=== PATIENT | female | born 1980 | race Caucasian/White ===

== ENCOUNTER 2018-07-26 11:59 | Outpatient (REF) | payer MEDICAID, SELFPAY ==
[2018-07-26 18:48] LABS: Anion Gap 13.7 mmol/L (3-11); BUN 14 mg/dL (7-18); CO2 25.3 mmol/L (21.0-32.0); Calcium 9.5 mg/dL (8.5-10.1); Chloride 113 mmol/L (98-107); Glucose 79 mg/dL (70-100); Potassium 5.4 mmol/L (3.5-5.1); Sodium 152 mmol/L (136-145); TSH (W/Ref FT4) 1.69 uIU/mL (0.358-3.74)
== END 2018-07-26 12:19 ==
LOC: NCHCN 11:59
PROVIDERS: PCP Nurse Practitioner Family; Visit Provider Nurse Practitioner Family
DX: E03.9 Hypothyroidism, unspecified (principal)
CPT/HCPCS: 80048; 84443

== ENCOUNTER 2018-08-11 11:36 | Outpatient (CLI) | payer MEDICAID, SELFPAY ==
[2018-08-12 10:06] LABS: BUN 14 mg/dL (7-18); CREATININE 0.71 mg/dL (0.55-1.02); Calcium 9.2 mg/dL (8.5-10.1); Chloride 100 mmol/L (98-107); Glucose 82 mg/dL (70-100); Potassium 5.2 mmol/L (3.5-5.1); Sodium 136 mmol/L (136-145)
[2018-08-12 10:07] LABS: Anion Gap 9.6 mmol/L (3-11); CO2 26.4 mmol/L (21.0-32.0)
== END 2018-08-11 11:56 ==
PROVIDERS: PCP Nurse Practitioner Family; Visit Provider Nurse Practitioner Family
DX: R63.5 Abnormal weight gain (principal); L81.9 Disorder of pigmentation, unspecified
CPT/HCPCS: 80048

== ENCOUNTER 2018-11-08 00:59 | Outpatient (CLI) | payer MEDICAID, SELFPAY ==
--- NOTE | 2018-11-08 10:55 | NS.NUTBLAN_ITS ---
DESCRIPTION/ASSESSMENT: Jadyn Law presents with her and child for nutrition consult with recent weight gain of 70 pounds over the past year since stopping . BMI 34 Jadyn has been tracking her calories in [employer] and sends in her food journal prior to the appointment. Her food input reveals she is eating 1000- 1200 calories per day and averages 25-34 grams protein daily. Jadyn has been gaining about a pound a week. Since seeing her PCP she has cut back on her food intake, choices and portions. She is drinking 5 cups water daily. States she has adequate resources for purchasing food for her family and appreciates [facility]. Jadyn and her walk 1/2 hour a couple of times a week. On further inspection of her food choices, she admits that she is not thorough in her documentation of her food, i.e. no recorded milk with cereal; sugar in coffee. INTERVENTION: Discussed general balanced food plan; caloric density of foods; accurate portions. Discussed plate method. Reviewed sources of protein and the caloric density of processed and fast food choices. Discussed physical activity with possibility of increasing frequency of days for walking. PLAN: Jadyn will increase vegetables to at least 1 cup lunch and supper with snacks between; increase her portions and variety of protein foods measure her food once for check on accuracy of information in [employer] add 10-2 servings of fruit daily for snack and sweet walk 2 more days a week than currently We will follow up by telephone in a week. Jadyn is engaged in the conversation and motivated to make changes.
== END 2018-11-08 01:19 ==
PROVIDERS: PCP Nurse Practitioner Family; Visit Provider Dietitian, Registered
DX: R63.5 Abnormal weight gain (principal); Z71.3 Dietary counseling and surveillance
CPT/HCPCS: 97802

== ENCOUNTER 2019-08-08 09:49 | Outpatient (REF) | payer MEDICAID, SELFPAY ==
[2019-08-08 16:24] LABS: TSH (W/Ref FT4) 1.84 uIU/mL (0.36-3.74)
== END 2019-08-08 10:09 ==
LOC: NCHCN 09:49
PROVIDERS: PCP Nurse Practitioner Family; Visit Provider Nurse Practitioner Family
DX: E03.9 Hypothyroidism, unspecified (principal)
CPT/HCPCS: 84443

== ENCOUNTER 2019-10-06 00:58 | Outpatient (CLI) | payer MEDICAID, SELFPAY ==
--- NOTE | 2019-10-06 07:30 | DI.US_ITS ---
EXAM: US OB 1ST TRIMESTER CLINICAL HISTORY: late entry to care, Z34.81, SUPERVISION . COMPARISON: US OB ASSESSMENT - WEIGHT/BRENDON from 12/24/2015 TECHNIQUE: Transabdominal first trimester obstetrical ultrasound performed. FINDINGS: There is a single living intrauterine gestation. Estimated sonographic age is 15 weeks 2 days. EDC is 03/27/2020 heart rate is 160 beats per minute. movement was noted during the examinat ion. Amniotic fluid is within normal limits. Both ovaries are visualized and are grossly unremarkab le. IMPRESSION: Single live intrauterine gestation as above. DATA REPOSITORY:
== END 2019-10-06 01:18 ==
PROVIDERS: PCP Nurse Practitioner Family; Visit Provider Obstetrics & Gynecology Gynecology
DX: Z34.82 Encounter for supervision of other normal pregnancy, second trimester (principal); Z3A.15 15 weeks gestation of pregnancy
CPT/HCPCS: 76801

== ENCOUNTER 2019-10-06 10:54 | Outpatient (REF) | payer MEDICAID, SELFPAY ==
--- NOTE | 2019-10-06 10:10 | PAPFT_PTH ---
PATIENT: Jadyn Law LOC: [facility] U#:[id number] AGE/SX: 38/F ROOM: RE10/06/[address]: Radha Montaño : 1980 BED: DIS: 10/06/2019 SPEC #: [id number] RECD: 10/06/19 12:57 STATUS: JULIANN REQ #: [id number] KERON: 10/06/19 10:[address]: Radha Montaño DEPT: [facility] Cytology RECD BY: Alesha Teixeira ENTERED: 10/06/19 12:58 SP TYPE: PAPFT OTHR DR: Sneha Wood Tissues: 1 - CX/ENDOCX FOR PAP SMEARS Procedures: PAP THIN PREP/UVM Screening HPV DNA PROBE Comments: [id number]
[2019-10-06 12:34] LABS: *AMPHETAMINES SCREEN URINE Negative (Negative); *BARBITURATES SCREEN URINE Negative (Negative); *BENZODIAZEPINES SCREEN URINE Negative (Negative); Cannabinoids THC Negative (Negative); Cocaine Screen,Urine Negative (Negative); METHADONE URINE SCREEN Negative (Negative); OPIATES URINE SCREEN Negative (Negative)
[2019-10-06 12:36] LABS: Tricyclic Antidepressants Negative (Negative)
[2019-10-07 14:39] LABS: Chlamydia Result Negative (Negative); GC Result Negative (Negative)
[2019-10-11 16:35] LABS: Buprenorphine Negative; Norbuprenorphine Negative
--- NOTE | 2019-10-18 15:06 | W.DIABETESNO ---
Date of service: 10/18/19 Time of Service: 15:06 Diabetes Note NOTE: Received referral for nutrition consult for gestational diabetes for pt. She is 38 years old and has hx of gestational dm with previous child that required metformin and NPH insulin. Current meds include vitamin and levothyrioxin. 5'3 202 lbs, BMI 35. She reports fasting sugars ranging from 83-97 mg/dl, 1 hour pp levels ranging from 79-161 mg/dl. Readings > 130 mg/dl occurred after eating pizza and pasta meals. We discussed importance of following strict blood sugar control with focus on complex carbs, lean protein and non starchy vegetables. Marsha is knowledgeable about nutrition and motivated to maintain good nutrition during this . I provided education on glycemic index and ways to fill up without high intakes of calories/carbohydrates that can drive up her blood sugars. Follow visit scheduled for next [facility] appt on 11/03/19. Time Spent in Nutritional Counseling and Treatment: 15 min spent talking on phone
--- NOTE | 2019-11-01 09:20 | W.DIABETESNO ---
Date of service: 11/01/19 Time of Service: 09:20 Diabetes Note NOTE: Spoke with Jadyn after she sent me her food record and blood sugar log. Jadyn is 18 weeks with GDM. Previous took metformin and NPH insulin. In last 7 days, has had fasting readings 78-97 mg/dl, post pranial readings ranging from 135-151 mg/dl. Food record indicates overall well balanced meals, however does have simple carbs about once daily. Reviewed high carb food items to avoid such as ramen noodles, rice. Encouraged increase in non starchy vegetables and lean protein. Will meet in person at next fu appt. scheduled for 11/03/19 at 11 am. Per morning meeting, most likely will need to add insulin for optimal blood sugar control. Time Spent in Nutritional Counseling and Treatment: 10 min
== END 2019-10-06 11:14 ==
LOC: LBN 10:54
PROVIDERS: PCP Nurse Practitioner Family; Visit Provider Advanced Practice Midwife
DX: Z34.91 Encounter for supervision of normal pregnancy, unspecified, first trimester (principal); Z11.3 Encounter for screening for infections with a predominantly sexual mode of transmission; Z12.4 Encounter for screening for malignant neoplasm of cervix; N89.8 Other specified noninflammatory disorders of vagina
CPT/HCPCS: 80307; 87491; 87591; 88142; 87086; 87480; 87510; 87624; 87660

== ENCOUNTER 2019-11-03 13:46 | Outpatient (CLI) | payer MEDICAID, SELFPAY ==
--- NOTE | 2019-11-03 13:00 | NS.NUTBLAN_ITS ---
Jadyn is dx with GDM, 18 weeks gestation. Previous with insulin dept GDM, with DVT, PE. Meds include levothyroxin, vitamins. BMI > 35 at with failed GTT. This is second nutritional counseling session for Jadyn, previously counseled over phone, today in person in [facility]. Food record log indicates well balanced, home cooked meals with fasting sugars and pp sugars wnl. Strong family history of diabetes, Jadyn is very knowledgeable about diabetic exchanges and affects of foods on blood sugars. Jadyn also walks 1 hour daily after dinner. She has noted that when she misses her walk, her fasting sugars become more elevated. Overall, Berta's GDM is diet and exercise controlled. Encouraged her to continue checking her BS and email me her blood sugar log weekly. Will continue to follow.
--- NOTE | 2019-11-14 12:41 | W.DIABETESNO ---
Date of service: 11/14/19 Time of Service: 12:42 Diabetes Note NOTE: Jadyn emailed specifications writer her blood sugar logs for previous week. Jadyn is 20 weeks and dx with GDM. In last 7 days all fasting sugars indicated to be <95 mg/dl, post prandials <135 mg/dl, one elevated post prandial of 164 mg/dl after dinner with noodles/potatoes. Jadyn continues to walk upto 1 mile most days. At this time, GDM controlled with lifestyle changes. Will continue to follow and support. Time Spent in Nutritional Counseling and Treatment: 10 min spent
== END 2019-11-03 14:06 ==
PROVIDERS: PCP Nurse Practitioner Family; Visit Provider Dietitian, Registered
DX: O24.410 Gestational diabetes mellitus in pregnancy, diet controlled (principal); Z71.3 Dietary counseling and surveillance
CPT/HCPCS: 97803

== ENCOUNTER 2019-11-18 12:30 | Outpatient (REF) | payer MEDICAID, SELFPAY ==
[2019-11-18 12:55] LABS: Abs Immature Grans 0.03 10^3/uL (0.0-0.06); Absolute Basophil Count 0.02 10^3/uL (0.0-0.2); Absolute Eosinophil Count 0.07 10^3/uL (0.0-0.7); Absolute Lymphocyte Count 1.56 10^3/uL (1.2-3.4); Absolute Monocyte Count 0.45 10^3/uL (0.1-0.8); Absolute Neutrophil Count 5.91 10^3/uL (1.2-6.7); Basophils % 0.2; Eosinophils % 0.9; HCT 33.6 % (36.0-46.0); HGB 11.1 g/dL (11.2-15.7); Immature Grans % 0.4; Lymphocytes % 19.4; MCH 30.5 pg (27.0-33.0); MCV 92.3 fL (80-95); MPV 12.8 fL (8.0-11.0); Monocytes % 5.6; Neutrophils % 73.5; Nucleated RBC 0 %; Platelet Count 238 10^3/uL (130-400); RBC 3.64 10^6/uL (3.93-5.22); RDW 13.7 % (11.7-14.6); RDW-SD 46.3 fL; WBC 8.04 10^3/uL (4.4-10.8)
[2019-11-18 13:10] LABS: FREE T4 1.04 ng/dL (0.76-1.46); TSH 2.88 uIU/mL (0.36-3.74)
[2019-11-19 10:19] LABS: HIV-1/2 Ag & Ab Screen Negative (Negative)
[2019-11-21 09:28] LABS: Hepatitis B Surface Ag Negative (Negative)
[2019-11-21 10:05] LABS: Hepatitis C Ab w Rflx HCV PCR Negative (Negative)
[2019-11-21 10:41] LABS: Syphilis Total Ab w/Reflex Nonreactive (Nonreactive)
[2019-11-21 11:11] LABS: Varicella IgG Antibody Positive (See Note)
[2019-11-21 11:14] LABS: Rubella IgG Ab (UVM) Positive (See Note)
--- NOTE | 2019-11-21 15:07 | W.DIABETESNO ---
Date of service: 11/21/19 Time of Service: 15:07 Diabetes Note NOTE: Jadyn is 21 weeks gestation. Food record and glucose log provided by Jadyn, fasting sugars range from 86-94 mg/dl. Post prandials typically under 140 mg/dl. Had 2 high PP readings this week after high carbohydrate meals such as pizza, hot dogs with potato salad. Overall, BS controlled well with diet and exercise. Continues to walk most days 1- 2miles. Will continue to encourage healthy life style to manage GDM. Time Spent in Nutritional Counseling and Treatment: 10 minutes on phone
== END 2019-11-18 12:50 ==
LOC: LBN 12:30
PROVIDERS: PCP Nurse Practitioner Family; Visit Provider Advanced Practice Midwife
DX: Z34.91 Encounter for supervision of normal pregnancy, unspecified, first trimester (principal); R82.90 Unspecified abnormal findings in urine; Z34.90 Encounter for supervision of normal pregnancy, unspecified, unspecified trimester
CPT/HCPCS: 86787; 86803; 86850; 86900; 86901; 87340; 87389; 84439; 84443; 85025; 86762; 86780; 87086

== ENCOUNTER 2020-01-06 02:24 | Outpatient (CLI) | payer MEDICAID, SELFPAY ==
[2020-01-06 14:38] LABS: Glucose,1 Hr (Glucola) 135 mg/dL (80-140)
== END 2020-01-06 02:44 ==
PROVIDERS: PCP Nurse Practitioner Family; Visit Provider Obstetrics & Gynecology
DX: O09.292 Supervision of pregnancy with other poor reproductive or obstetric history, second trimester (principal); Z86.32 Personal history of gestational diabetes
CPT/HCPCS: 36415; 82950

== ENCOUNTER 2020-01-11 01:09 | Outpatient (CLI) | payer MEDICAID, SELFPAY ==
[2020-01-11 10:44] LABS: Glucose 1 Hour 189 mg/dL
[2020-01-11 12:24] LABS: Glucose 3 Hour 78 mg/dL
== END 2020-01-11 01:29 ==
PROVIDERS: PCP Nurse Practitioner Family; Visit Provider Obstetrics & Gynecology
DX: O24.410 Gestational diabetes mellitus in pregnancy, diet controlled (principal)
CPT/HCPCS: 36410; 82951

== ENCOUNTER 2020-02-03 03:23 | Outpatient (CLI) | payer MEDICAID, SELFPAY ==
--- NOTE | 2020-02-03 07:30 | DI.US_ITS ---
EXAM: US OB BRENDON WEIGHT CLINICAL HISTORY: growth,Z34.93,o24.419,GEST DIABETES TECHNIQUE: Ultrasound performed using standard protocol. COMPARISON: US US OB 1ST TRIMESTER from 10/06/2019 FINDINGS: Ob ultrasound was performed utilizing 3rd trimester protocol. biometry is consistent with gestational age of 33 weeks 6 days and an EDC of March 17. The estimated weight is 2269 grams which is at the 84th percentile for predicted gestational ag e. Placenta is anterior with no placenta previa. There is visually a normal quantity of amniotic fluid and the BRENDON is 21. Fetus is in cephalic presentation. heart rate is 149 BPM. IMPRESSION: DATA REPOSITORY:
== END 2020-02-03 03:43 ==
PROVIDERS: PCP Nurse Practitioner Family; Visit Provider Obstetrics & Gynecology Gynecology
DX: O24.410 Gestational diabetes mellitus in pregnancy, diet controlled (principal); R82.90 Unspecified abnormal findings in urine; Z3A.33 33 weeks gestation of pregnancy
CPT/HCPCS: 76816; 87086

== ENCOUNTER 2020-02-24 04:05 | Outpatient (CLI) | payer MEDICAID, SELFPAY ==
--- NOTE | 2020-02-24 07:00 | DI.US_ITS ---
EXAM: US OB BRENDON WEIGHT CLINICAL HISTORY: GESTATIONAL DIABETES,O24.419 IN . TECHNIQUE: Transabdominal obstetrical ultrasound performed. COMPARISON: US US OB BRENDON WEIGHT from 02/03/2020 FINDINGS: Transabdominal obstetrical ultrasound performed. FINDINGS: Number of fetuses: One. position: Cephalic. Placental location: Anterior. No evidence of previa. BIOMETRIC DATA: EFW: 3250 grms 96% Composite Age: 37 weeks 4 days EDC: 03/12/2020 Heart Rate: 153BPM Amniotic fluid index: 36.8 cm. This is suggestive of polyhydramnios. IMPRESSION: 1. Single live intrauterine gestation as above. 2. Estimated weight is 3250gms. 3. Amniotic fluid index is 36.8 cm. DATA REPOSITORY:
== END 2020-02-24 04:25 ==
PROVIDERS: PCP Nurse Practitioner Family; Visit Provider Obstetrics & Gynecology
DX: O24.410 Gestational diabetes mellitus in pregnancy, diet controlled (principal)
CPT/HCPCS: 76816

== ENCOUNTER 2020-03-05 00:42 | Outpatient (CLI) | payer MEDICAID, SELFPAY ==
--- NOTE | 2020-03-05 07:00 | DI.US_ITS ---
EXAM: US OB BIOPHYSICAL PROFILE INDICATION: Polyhydramnios,GESTATIONAL DIABETES,O24.419. COMPARISON: No exams were available for comparison TECHNIQUE: FINDINGS: Biophysical profile is 8/8, with no points detected. However, the BRENDON is 26.1 centimetres consistent with polyhydramnios Placenta is anterior grade 2-3. No evidence of placenta previa. Fetus is present in cephalic positi on. Incidentally noted on today's study was a prominent right atrium with diameter 1.9 centimetres. Outflow tracts appear unremarkable. IMPRESSION: Biophysical profile is 8/8, with no points adducted. Polyhydramnios; BRENDON equals 26 centimeter Prominent right atrium. Findings discussed by phone with Dr. Summers
== END 2020-03-05 01:02 ==
PROVIDERS: PCP Nurse Practitioner Family; Visit Provider Obstetrics & Gynecology
DX: O24.414 Gestational diabetes mellitus in pregnancy, insulin controlled (principal); Z3A.36 36 weeks gestation of pregnancy
CPT/HCPCS: 76815; 76819

== ENCOUNTER 2020-03-05 10:06 | Outpatient (CLI) | payer MEDICAID, SELFPAY ==
[2020-03-05 10:12] VITALS: BP 138/77; PULSE 81; TEMP 37.1
[2020-03-05 10:29] VITALS: BP 138/77; PULSE 81
[2020-03-05 16:37] VITALS: BP 138/77; PULSE 81; TEMP 37.1
--- NOTE | 2020-03-05 16:37 | W.OBNST ---
Date of service: 03/05/20 Time of Service: 16:37 NST Evaluation Reason for NST Reasons for Nonstress Test: OLIGOHYDRAMNIOS Gestational Age Gestational Age in Weeks and Days: 36 Weeks and 5Days Test and Monitor Explained Test/Monitor Explained: Test Explained, Monitor Explained and Patient Verbalized Understanding Vital Signs Blood Pressure: 138/77 Pulse: 81 Temperature: 98.8 F NST Information Date on Monitor: 03/05/20 Time on Monitor: 10:10 Date off Monitor: 03/05/20 Time off Monitor: 10:44 Total Time on Monitor: 34 NST Interventions: PO Hydration and Reposition Patient NST Evaluation Patient States Movement: Present FHR Baseline: 140 Variability: Moderate 6-25 bpm Accelerations: 15x15 Decelerations: None NST Results: Reactive Note NST Note NST Reviewed and Verified by: Ricardo Summers
== END 2020-03-05 10:45 ==
LOC: BCD 10:06 → OBS 10:10
PROVIDERS: PCP Nurse Practitioner Family; Visit Provider Obstetrics & Gynecology
DX: O41.03X0 Oligohydramnios, third trimester, not applicable or unspecified (principal); Z3A.36 36 weeks gestation of pregnancy
CPT/HCPCS: 59025

== ENCOUNTER 2020-03-08 12:24 | Outpatient (CLI) | payer MEDICAID, SELFPAY ==
[2020-03-08 12:59] VITALS: BP 150/79; PULSE 87
[2020-03-08 13:03] VITALS: BP 116/70; PULSE 87; TEMP 36.7
[2020-03-08 13:36] VITALS: BP 140/78; PULSE 88
--- NOTE | 2020-03-08 14:20 | W.OBNST ---
Date of service: 03/08/20 Time of Service: 14:21 NST Evaluation Reason for NST Reasons for Nonstress Test: GDM-DIET CONTROLLED Gestational Age Gestational Age in Weeks and Days: 37 Weeks and 1Days Test and Monitor Explained Test/Monitor Explained: Patient Verbalized Understanding Vital Signs Blood Pressure: 116/70 Pulse: 87 Temperature: 98.1 F NST Information Date on Monitor: 03/08/20 Time on Monitor: 13:07 Date off Monitor: 03/08/20 Time off Monitor: 13:32 Total Time on Monitor: 25 NST Interventions: None NST Evaluation Patient States Movement: Present FHR Baseline: 140 Variability: Moderate 6-25 bpm Accelerations: 15x15 Decelerations: None NST Results: Reactive Note NST Note Note: Nonstress test reviewed, category 1 strip. Patient has appointment at [facility] on 03/09/2020 for maternal- medicine consultation and ultrasound. NST Reviewed and Verified by: Jennifer Jarrell
[2020-03-08 14:22] VITALS: BP 116/70; PULSE 87; TEMP 36.7
[2020-03-09 00:39] VITALS: BP 119/70; PULSE 87
== END 2020-03-08 14:05 | disposition home or self-care (01) ==
LOC: BCD 12:30 → OBS 12:56
PROVIDERS: PCP Nurse Practitioner Family; Visit Provider Obstetrics & Gynecology
DX: O24.410 Gestational diabetes mellitus in pregnancy, diet controlled (principal); Z3A.37 37 weeks gestation of pregnancy
CPT/HCPCS: 59025

== ENCOUNTER 2020-03-12 10:12 | Outpatient (CLI) | payer MEDICAID, SELFPAY ==
[2020-03-12 15:09] VITALS: PULSE 76; TEMP 36.5
[2020-03-12 15:58] VITALS: BP 135/80; PULSE 76; TEMP 208.4; TEMP 98
--- NOTE | 2020-03-12 16:55 | W.OBNST ---
Date of service: 03/12/20 Time of Service: 16:55 NST Evaluation Reason for NST Reasons for Nonstress Test: ADVANCED MATERNAL AGE Gestational Age Gestational Age in Weeks and Days: 37 Weeks and 5Days Test and Monitor Explained Test/Monitor Explained: Test Explained, Monitor Explained and Patient Verbalized Understanding Vital Signs Blood Pressure: 135/80 Pulse: 76 Temperature: 208.4 F NST Evaluation Patient States Movement: Present Variability: Moderate 6-25 bpm Accelerations: 15x15 Decelerations: None NST Results: Reactive Note NST Note Note: Patient seen for surveillance due to gestational diabetes. Category 1 strip. Occasional irregular contractions. We will follow-up for visit and nonstress test on NST Reviewed and Verified by: Jennifer Jarrell
[2020-03-12 16:56] VITALS: BP 135/80; PULSE 76; TEMP 208.4; TEMP 98
== END 2020-03-12 16:00 | disposition home or self-care (01) ==
LOC: BCD 10:13 → OBS 14:46
PROVIDERS: PCP Nurse Practitioner Family; Visit Provider Obstetrics & Gynecology
DX: O09.523 Supervision of elderly multigravida, third trimester (principal); O24.419 Gestational diabetes mellitus in pregnancy, unspecified control; Z3A.37 37 weeks gestation of pregnancy
CPT/HCPCS: 59025

== ENCOUNTER 2020-03-15 07:11 | Outpatient (CLI) | payer MEDICAID, SELFPAY ==
[2020-03-15 13:00] VITALS: BP 134/82; PULSE 90; TEMP 36.8
[2020-03-15 13:28] VITALS: BP 134/82; PULSE 90
--- NOTE | 2020-03-15 13:54 | W.OBNST ---
Date of service: 03/15/20 Time of Service: 13:54 NST Evaluation Reason for NST Reasons for Nonstress Test: GDM-DIET CONTROLLED Gestational Age Gestational Age in Weeks and Days: 38 Weeks and 1Days Test and Monitor Explained Test/Monitor Explained: Test Explained, Monitor Explained and Patient Verbalized Understanding Vital Signs Blood Pressure: 134/82 Pulse: 90 Temperature: 98.2 F NST Information Date on Monitor: 03/15/20 Time on Monitor: 13:00 Date off Monitor: 03/15/20 Time off Monitor: 13:35 Total Time on Monitor: 35 NST Interventions: None NST Evaluation Patient States Movement: Present Variability: Moderate 6-25 bpm Accelerations: 15x15 Decelerations: None NST Results: Reactive Note NST Note Note: Patient presented to the center today for nonstress test due to gestational diabetes. She has a category 1 strip with baseline heart rate of 145. NST Reviewed and Verified by: Jennifer Jarrell
[2020-03-15 13:55] VITALS: BP 134/82; PULSE 90; TEMP 36.8
--- NOTE | 2020-05-02 14:23 | W.OBNST ---
Date of service: 05/02/20 Time of Service: 14:24 NST Evaluation Reason for NST Reasons for Nonstress Test: GDM-DIET CONTROLLED Gestational Age Gestational Age in Weeks and Days: 39 Weeks and 0Days Test and Monitor Explained Test/Monitor Explained: Test Explained, Monitor Explained and Patient Verbalized Understanding Vital Signs Blood Pressure: 134/82 Pulse: 90 Temperature: 98.2 F NST Information Date on Monitor: 03/15/20 Time on Monitor: 13:00 Date off Monitor: 03/15/20 Time off Monitor: 13:35 Total Time on Monitor: 35 NST Interventions: None NST Evaluation Patient States Movement: Present Variability: Moderate 6-25 bpm Accelerations: 15x15 Decelerations: None NST Results: Reactive Note NST Note NST Reviewed and Verified by: Erin Keene
[2020-05-02 14:24] VITALS: BP 134/82; PULSE 90; TEMP 36.8
== END 2020-03-15 13:40 | disposition home or self-care (01) ==
LOC: BCD 07:13 → OBS 12:53
PROVIDERS: PCP Nurse Practitioner Family; Visit Provider Obstetrics & Gynecology Gynecology
DX: O24.410 Gestational diabetes mellitus in pregnancy, diet controlled (principal); Z3A.38 38 weeks gestation of pregnancy
CPT/HCPCS: 59025

== ENCOUNTER 2020-03-19 14:10 | Outpatient (CLI) | payer MEDICAID, SELFPAY ==
[2020-03-19 14:33] VITALS: BP 145/83; PULSE 86; TEMP 37
[2020-03-19 14:44] VITALS: BP 145/83; PULSE 86
--- NOTE | 2020-03-19 19:58 | W.OBNST ---
Date of service: 03/19/20 Time of Service: 19:58 NST Evaluation Reason for NST Reasons for Nonstress Test: GDM-DIET CONTROLLED Gestational Age Gestational Age in Weeks and Days: 38 Weeks and 5Days Test and Monitor Explained Test/Monitor Explained: Test Explained, Monitor Explained and Patient Verbalized Understanding Vital Signs Blood Pressure: 145/83 Pulse: 86 Temperature: 98.6 F NST Information Date on Monitor: 03/19/20 Time on Monitor: 14:32 Date off Monitor: 03/19/20 Time off Monitor: 15:12 Total Time on Monitor: 40 NST Interventions: None NST Evaluation Patient States Movement: Present FHR Baseline: 135 Variability: Minimal <6 bpm Accelerations: 10x10 Decelerations: None NST Results: Reactive Note NST Note Note: Category 1 nonstress test. Cervix 3 cm, 50%, -2 station. Plan for labor induction if undelivered by Thursday NST Reviewed and Verified by: Jennifer Jarrell
[2020-03-19 19:59] VITALS: BP 145/83; PULSE 86; TEMP 37
== END 2020-03-19 15:20 | disposition home or self-care (01) ==
LOC: BCD 14:12 → OBS 14:30
PROVIDERS: PCP Nurse Practitioner Family; Visit Provider Obstetrics & Gynecology
DX: O24.410 Gestational diabetes mellitus in pregnancy, diet controlled (principal); Z3A.38 38 weeks gestation of pregnancy
CPT/HCPCS: 59025

== ENCOUNTER 2020-03-21 18:02 | Inpatient (IN) | payer MEDICAID, SELFPAY ==
[2020-03-21 18:10] VITALS: BP 142/81; PULSE 92; RESP 18; RESP 20; TEMP 36.5; O2SAT 100
[2020-03-21 18:50] LABS: HCT 30.2 % (36.0-46.0); HGB 9.1 g/dL (11.2-15.7); MCH 25.3 pg (27.0-33.0); MCHC 30.1 % (32.0-36.0); MCV 84.1 fL (80-95); MPV 12.6 fL (8.0-11.0); Platelet Count 273 10^3/uL (130-400); RBC 3.59 10^6/uL (3.93-5.22); RDW 13.7 % (11.7-14.6); RDW-SD 42.3 fL; WBC 10.73 10^3/uL (4.4-10.8)
[2020-03-21] MEDS: Lactated Ringers 1,000 ML 125 ML IV (19:05)
[2020-03-21 19:54] VITALS: BP 131/105; PULSE 94
--- NOTE | 2020-03-21 19:59 | W.PM.OBHPL1 ---
Date of service: 03/21/20 Time of Service: 19:59 Assessment and Plan Assessment and plan (1) : Status: Acute Assessment and plan: Term with a history of diet controlled GDM and Gestational hypertension . Has a personal history of hydrocephalus with shunt. Seen at [facility] for MFM and level II U/S (2) Gestational diabetes: Status: Acute Assessment and plan: Diet controlled (3) Hypothyroid: Status: None Assessment and plan: on synthroid (4) Shunt procedures x several second to hydrocephalus: Status: None Assessment and plan: Will give ancef for antibiotic prohylaxis (5) Gestational hypertension affecting second : Status: Acute Assessment and plan: Monitor blood pressure. Will get labs for pre-eclampsia. Labor induction this evening with pitocin as favorable cervix. Epidural for pain control when needed OB-HPI Labor/Delivery History of Present Illness Reason for Visit: INDUCTION Chief Complaint: Scheduled Induction of Labor Indication for Induction: Gestational Diabetes, Gestational Hypertension and Polyhydramnios. CORBY Calculator Estimated Delivery Date Method Current WG Current Estimate 03/28/20 LMP (Certain) 39w 0d History of Present Expected Delivery Route/Plan URIEL - FOB: Uriel Sharp (second child together) Specific Issues/Plan 1. A.M.A. - referred to [facility] for level II US - declined serum testing. 1a. Normal anatomy scan at [facility] 2. Maternal history of hydrocephalus with shunt procedures - Level II US and MFM consult 2a. Normal Level II US, anesthesia consult recommended 2b. Intrapartum prophylactic antibiotics recommended by [facility] due to risk of brain abcess 3. Paternal family history of CF - previous CF testing neg 4. Conceived after vasectomy- late entry to care 5. History of GDM with previous - insulin controlled. 01/11/20. Elevated GTT 101/189/131/78. referral to nutrition. Begin testing 4x/day 5a. 11/17/19 ECHO Nl 6. Hypothyroidism - taking levothyroxine 100 mcg daily -10/05 - TSH: 2.88, T4: 1.04 7. Elevated BMI - 36 - ASA recommended due to AMA and elevated BMI 8. Vaginal discharge - Pathogen screen 10/05 BV - Rx for metronidazole 9. History of Hypertension - Treated with Lisinopril in the past - 9a. ASA 1.5 tablets daily until 38 weeks recommended by [facility] Review of Systems Constitutional Constitutional: Denies chills, Denies fever(s) and Denies headache(s) ENT Ears, Nose, Mouth, and Throat: Denies headache(s) Cardiovascular Cardiovascular: Denies chest pain, Denies chest pain at rest and Denies dyspnea Respiratory Respiratory: Denies cough and Denies dyspnea Gastrointestinal Gastrointestinal: Denies abdominal pain and Denies constipation Neurologic Neurologic: Denies headache(s) Endocrine Endocrine: Reports system reviewed and no additional complaints, except as documented [facility] Medical History (Updated 03/21/20 @ 20:04 by Jennifer Jarrell DO) Elevated glucose tolerance test Encounter for supervision of other normal , first trimester Family history of diabetes mellitus Family history of thyroid disease Gestational diabetes Good hypertension control Hx gestational diabetes Hx of gestational diabetes in prior , currently Required Metformin and NPH insulin during 1st . Nl 2hr PP GTT. Hydrocephalus ventricular shunt placed as 5yo and revised @ 13yo. Hypothyroid Noted during . PP Levoxyl adjusted from 75mcg to 50mcg. Patent ductus arteriosus Phyllodes tumor breast benign Surgical History (Updated 11/23/19 @ 11:30 by Radha Montaño CNM) excision benign Phyllodes tumor L breast 2005 Patent Ductus Arteriosus closure @ 7 days old Shunt procedures x several second to hydrocephalus Family History (Updated 10/06/19 @ 09:29 by Radha Montaño CNM) Mother Diabetes Thyroid disease Father Alcohol abuse Paternal Grandfather Alcohol abuse Maternal Aunt Thyroid disease Social History (Updated 09/21/19 @ 09:45 by Erin Keene MD) Smoking/Tobacco Use Status: Never Smoking risk assessment performed?: Yes Alcohol Intake: former Drug use: Never Substance use type: does not use Adopted: No Household members: significant other and other Details: Partner Uriel and their daughter Waleska Number of Children: 1 Communication Needs: None current occupation: stay at home parent Female Reproductive History Menstrual control method: permanent sterilization ( had vasectomy in 1999. Did not return for recheck. Patient positive UPT 09/1999) History History 2 Para 1 Hx # Term Pregnancies 1 Multiple births Hx # Pregnancies Ectopic pregnancies AB induced Hx Number of Living Children AB spontaneous Past Pregnancies Del. Date GA/Weeks # Outcome Route Wgt Sex Labor Lgth Anesthesia Location Prov Complic 12/25/15 37 No Successful vaginal 6 lb 13 oz Female [address] Hagen Delivery Date: 12/25/15 gestational diabetes - insulin controlled Radha Montaño Medyazmin Home Medications and Allergies Home Medications Medication Instructions Recorded Confirmed Type blood sugar diagnostic #50 each 09/21/19 03/05/20 Rx blood-glucose meter #1 each 09/21/19 03/05/20 Rx lancets 33 gauge #100 each 09/21/19 03/05/20 Rx prenat.vits,jetrho,xlx-riby-kscly 1 tab PO DAILY #90 tab 09/21/19 03/05/20 Rx levothyroxine 100 mcg capsule 100 mcg PO DAILY 10/06/19 03/05/20 History aspirin 81 mg chewable tablet 81 mg PO DAILY 02/03/20 03/05/20 History Allergies Allergy/AdvReac Type Severity Reaction Status Date / Time No Known Allergies Allergy Unverified 02/03/20 13:33 Exam Physical Exam Vital signs: Temp Pulse Resp BP Pulse Ox 97.7 F 94 H 18 131/105 H 100 03/21/20 18:10 03/21/20 19:54 03/21/20 18:10 03/21/20 19:54 03/21/20 18:10 Detailed Labor and Delivery Exam Sesay Score: Cervical Points Exam 0 1 2 3 Dilation Closed 1-2cm 3-4 cm 5-6cm Effacement 0-30% 40-50% 60-70% 80% Consistency Firm Medium Soft Station -3 -2 -1,0 +1,+2 Position Posterior Mid Anterior Fetus A Heart Rate Baseline: 145 Monitor Accelerations: 15 X 15 Monitor Decelerations: None Variability: Moderate (6-25 BPM) Presentation: Cephalic Categories: Category I Est. Weight: 8 lb Assessment Note: Category 1 strip, irregular contractions HEENT Exam HEENT Exam: Normal Neck Exam Neck Exam: Normal Respiratory Exam Respiratory Exam: Normal Cardiovascular Exam Cardiovascular Exam: Normal Exam Exam: Normal Extremities Exam Extremities Exam: Abnormal (2+ edema) Back/Spine/Pelvis Exam Back Exam: Normal Neurological Exam Neurological Exam: Normal Results Results Group Beta Strep: Negative Blood Type: A+ Rubella Status: Immune Varicella Immunity: Immune Abnormal Lab Findings: Abnormal Labs 03/21/20 18:37 RBC 3.59 L Hgb 9.1 L Hct 30.2 L MCH 25.3 L MCHC 30.1 L MPV 12.6 H Risk Assessment Risk for Shoulder Dystocia Historical/Initial OB: POSITIVE FOR: Pre- BMI>30; NEGATIVE FOR: Pelvic Abnormality, Previous Shoulder Dystocia or Previous Macrosomia Increased Risk?: No Risk for Pre-Eclampsia Daily Dose ASA Indicated: No Yes, if one or more: NEGATIVE FOR: Hx Pre-E/Gest HTN, Chronic HTN, Multiple Gestation, Pre-gestational DM, Renal Disease, Systemic Lupus or APA Syndrome Yes, if 2 or more: POSITIVE FOR: Age>= 35 yrs and BMI>30; NEGATIVE FOR: Nulliparity, >10yr btwn pregnancies, ethinicty, Mother/Sister w/ Pre-E or Previous IUGR Risk for Post- Hemorrhage Initial: NEGATIVE FOR: Multiple Gestation, Previous PPH, Known Clotting Deficiency, Grand Multiparity or Anticoagulation At Risk?: No Risks Reviewed Risks Reviewed Upon Admission: Yes (moderate risk for shoulder dystocia due to obesity and GDM)
[2020-03-21 20:04] VITALS: BP 122/78; RESP 16; TEMP 36.8
[2020-03-21 20:37] LABS: ALT 20 U/L (14-59); AST 29 U/L (15-37); Albumin 2.7 g/dL (3.4-5.0); Alkaline Phosphatase 143 U/L (46-116); Anion Gap 13.6 mmol/L (3-11); BUN 10 mg/dL (7-18); Bilirubin, Total 0.3 mg/dL (0.2-1.0); CO2 18.4 mmol/L (21.0-32.0); CREATININE 1.13 mg/dL (0.55-1.02); Calcium 8.8 mg/dL (8.5-10.1); Chloride 106 mmol/L (98-107); Estimated GFR 53.89 (mL/min/1.73m2); Glucose 117 mg/dL (74-106); Potassium 4.3 mmol/L (3.5-5.1); Sodium 138 mmol/L (136-145); Total Protein 6.1 g/dL (6.4-8.2)
[2020-03-21] MEDS: Oxytocin/Normal Saline 30 UNIT/500 ML BAG 1 UNITS IV (21:12)
[2020-03-21 21:13] LABS: PROTEIN 123.5 mg/dL
[2020-03-21 21:15] LABS: COMMENT (LAB VIEW ONLY) 222.58 mg/dL; Prot/Crea Ur Ratio 0.55
[2020-03-21 23:21] VITALS: BP 137/65; PULSE 85
[2020-03-21 23:25] VITALS: BP 137/76; PULSE 80; RESP 18; TEMP 36.5
[2020-03-22] VITALS (37 sets, daily range): BP systolic 96–167; BP diastolic 59–95; PULSE 61–120; RESP 16–22; TEMP 36.4–37; O2SAT 97–100
[2020-03-22] MEDS: Calcium Carbonate *TUMS* 500 MG CHEW 1000 MG PO ×4 (01:01→22:35)
--- NOTE | 2020-03-22 07:07 | W.PM.OBNL1 ---
Date of service: 03/22/20 Time of Service: 07:07 Informed Consent Informed Consent: Induction of Labor Pelvic Exam Dilation: 4 Effacement (%): 60 station: -3 (Ballotable) Cervix Position: mid Consistency: soft Vaginal Exam Presentation: Vertex Contractions Monitor Mode: External Contraction Frequency(min): 5 Contraction Duration(sec): 60 Intensity: Moderate Fetus A Monitor: External (US) Heart Rate Baseline: 140 Presentation: Cephalic Variability: Moderate (6-25 BPM) Categories: Category I FHR Rhythm: Regular Accelerations: 15 X 15 Decelerations: None Assessment and Plan Assessment and plan (1) Gestational hypertension affecting second : Status: Acute Assessment and plan: Continue labor induction with Pitocin augmentation currently at 5 milliunits. Patient will have an epidural when her pain is worse. When she is comfortable, artificial rupture of membranes may be undertaken. Glucose monitoring is no every 4 hours which sugars have been normal. (2) Shunt procedures x several second to hydrocephalus: Status: None Assessment and plan: Antibiotic prophylaxis with Ancef Objective Abnormal lab results 03/21/20 03/21/20 Range/Units 18:37 18:37 RBC 3.59 L (3.93-5.22) 10^6/uL Hgb 9.1 L (11.2-15.7) g/dL Hct 30.2 L (36.0-46.0) % MCH 25.3 L (27.0-33.0) pg MCHC 30.1 L (32.0-36.0) % MPV 12.6 H (8.0-11.0) fL Carbon Dioxide 18.4 L (21.0-32.0) mmol/L Anion Gap 13.6 H (3-11) mmol/L Creatinine 1.13 H (0.55-1.02) mg/dL Glucose 117 H (74-106) mg/dL Alkaline Phosphatase 143 H (46-116) U/L Total Protein 6.1 L (6.4-8.2) g/dL Albumin 2.7 L (3.4-5.0) g/dL Temp Pulse Resp BP Pulse Ox 97.5 F L 82 20 137/80 100 03/22/20 01:35 03/22/20 06:44 03/22/20 01:35 03/22/20 06:44 03/21/20 18:10 Laboratory Results WBC 10.73 10^3/uL (4.4-10.8) 03/21/20 18:37 RBC 3.59 10^6/uL (3.93-5.22) L 03/21/20 18:37 Hgb 9.1 g/dL (11.2-15.7) L 03/21/20 18:37 Hct 30.2 % (36.0-46.0) L 03/21/20 18:37 MCV 84.1 fL (80-95) 03/21/20 18:37 MCH 25.3 pg (27.0-33.0) L 03/21/20 18:37 MCHC 30.1 % (32.0-36.0) L 03/21/20 18:37 RDW 13.7 % (11.7-14.6) 03/21/20 18:37 Plt Count 273 10^3/uL (130-400) 03/21/20 18:37 MPV 12.6 fL (8.0-11.0) H 03/21/20 18:37 Sodium 138 mmol/L (136-145) 03/21/20 18:37 Potassium 4.3 mmol/L (3.5-5.1) 03/21/20 18:37 Chloride 106 mmol/L (98-107) 03/21/20 18:37 Carbon Dioxide 18.4 mmol/L (21.0-32.0) L 03/21/20 18:37 Anion Gap 13.6 mmol/L (3-11) H 03/21/20 18:37 BUN 10 mg/dL (7-18) 03/21/20 18:37 Creatinine 1.13 mg/dL (0.55-1.02) H 03/21/20 18:37 Estimated GFR/1.73 m2 53.89 (mL/min/1.73m2) 03/21/20 18:37 Glucose 117 mg/dL (74-106) H 03/21/20 18:37 Calcium 8.8 mg/dL (8.5-10.1) 03/21/20 18:37 Total Bilirubin 0.3 mg/dL (0.2-1.0) 03/21/20 18:37 AST 29 U/L (15-37) 03/21/20 18:37 ALT 20 U/L (14-59) 03/21/20 18:37 Alkaline Phosphatase 143 U/L (46-116) H 03/21/20 18:37 Total Protein 6.1 g/dL (6.4-8.2) L 03/21/20 18:37 Albumin 2.7 g/dL (3.4-5.0) L 03/21/20 18:37 Ur Random Creatinine 222.58 mg/dL 03/21/20 20:44 U Random Total Protein 123.5 mg/dL 03/21/20 20:44 U [place] Prot/Creat Ratio 0.55 03/21/20 20:44 Patient ABO/Rh A Positive 03/21/20 18:37 Antibody Screen Negative 03/21/20 18:37 Subjective Interval history since last seen: Patient seen and examined this morning. She was able to get some rest last night. Her contractions are becoming more intense and more regular. Baby is moving and active. She denies headaches or visual changes. We will continue with her labor induction with a category 1 strip Results Hemoglobin/Hematocrit: Hgb 9.1 g/dL (11.2-15.7) L 03/21/20 18:37 Hct 30.2 % (36.0-46.0) L 03/21/20 18:37 Abnormal Lab Findings: Abnormal Labs 03/21/20 03/21/20 18:37 18:37 RBC 3.59 L Hgb 9.1 L Hct 30.2 L MCH 25.3 L MCHC 30.1 L MPV 12.6 H Carbon Dioxide 18.4 L Anion Gap 13.6 H Creatinine 1.13 H Glucose 117 H Alkaline Phosphatase 143 H Total Protein 6.1 L Albumin 2.7 L
--- NOTE | 2020-03-22 10:07 | W.PM.OBNL1 ---
Date of service: 03/22/20 Time of Service: 10:08 Informed Consent Informed Consent: Induction of Labor Pelvic Exam Dilation: 4 Effacement (%): 50 station: -3 (ballotable) Cervix Position: mid Consistency: soft Vaginal Exam Presentation: Cephalic Contractions Monitor Mode: External Contraction Frequency(min): 2- Contraction Duration(sec): 50 Intensity: Mild/Moderate Fetus A Monitor: External (US) Heart Rate Baseline: 150 Variability: Moderate (6-25 BPM) Categories: Category I FHR Rhythm: Regular Characteristics: Normal Accelerations: 15 X 15 Decelerations: None Amniotic Membrane Status: Intact Assessment and Plan Assessment and plan (1) Elective induction of labor planned: Status: Acute Objective Abnormal lab results 03/21/20 03/21/20 Range/Units 18:37 18:37 RBC 3.59 L (3.93-5.22) 10^6/uL Hgb 9.1 L (11.2-15.7) g/dL Hct 30.2 L (36.0-46.0) % MCH 25.3 L (27.0-33.0) pg MCHC 30.1 L (32.0-36.0) % MPV 12.6 H (8.0-11.0) fL Carbon Dioxide 18.4 L (21.0-32.0) mmol/L Anion Gap 13.6 H (3-11) mmol/L Creatinine 1.13 H (0.55-1.02) mg/dL Glucose 117 H (74-106) mg/dL Alkaline Phosphatase 143 H (46-116) U/L Total Protein 6.1 L (6.4-8.2) g/dL Albumin 2.7 L (3.4-5.0) g/dL Temp Pulse Resp BP Pulse Ox 98.1 F 90 20 143/91 H 98 03/22/20 09:45 03/22/20 09:39 03/22/20 09:45 03/22/20 09:45 03/22/20 09:45 Laboratory Results WBC 10.73 10^3/uL (4.4-10.8) 03/21/20 18:37 RBC 3.59 10^6/uL (3.93-5.22) L 03/21/20 18:37 Hgb 9.1 g/dL (11.2-15.7) L 03/21/20 18:37 Hct 30.2 % (36.0-46.0) L 03/21/20 18:37 MCV 84.1 fL (80-95) 03/21/20 18:37 MCH 25.3 pg (27.0-33.0) L 03/21/20 18:37 MCHC 30.1 % (32.0-36.0) L 03/21/20 18:37 RDW 13.7 % (11.7-14.6) 03/21/20 18:37 Plt Count 273 10^3/uL (130-400) 03/21/20 18:37 MPV 12.6 fL (8.0-11.0) H 03/21/20 18:37 Sodium 138 mmol/L (136-145) 03/21/20 18:37 Potassium 4.3 mmol/L (3.5-5.1) 03/21/20 18:37 Chloride 106 mmol/L (98-107) 03/21/20 18:37 Carbon Dioxide 18.4 mmol/L (21.0-32.0) L 03/21/20 18:37 Anion Gap 13.6 mmol/L (3-11) H 03/21/20 18:37 BUN 10 mg/dL (7-18) 03/21/20 18:37 Creatinine 1.13 mg/dL (0.55-1.02) H 03/21/20 18:37 Estimated GFR/1.73 m2 53.89 (mL/min/1.73m2) 03/21/20 18:37 Glucose 117 mg/dL (74-106) H 03/21/20 18:37 Calcium 8.8 mg/dL (8.5-10.1) 03/21/20 18:37 Total Bilirubin 0.3 mg/dL (0.2-1.0) 03/21/20 18:37 AST 29 U/L (15-37) 03/21/20 18:37 ALT 20 U/L (14-59) 03/21/20 18:37 Alkaline Phosphatase 143 U/L (46-116) H 03/21/20 18:37 Total Protein 6.1 g/dL (6.4-8.2) L 03/21/20 18:37 Albumin 2.7 g/dL (3.4-5.0) L 03/21/20 18:37 Ur Random Creatinine 222.58 mg/dL 03/21/20 20:44 U Random Total Protein 123.5 mg/dL 03/21/20 20:44 U [place] Prot/Creat Ratio 0.55 03/21/20 20:44 Patient ABO/Rh A Positive 03/21/20 18:37 Antibody Screen Negative 03/21/20 18:37 Subjective Interval history since last seen: Requesting epidural for labor analgesia Interventions Pain Management Interventions: Epidural (Patient request epidural for labor analgesia. Anesthesia providers have been notified.) . Results Hemoglobin/Hematocrit: Hgb 9.1 g/dL (11.2-15.7) L 03/21/20 18:37 Hct 30.2 % (36.0-46.0) L 03/21/20 18:37 Abnormal Lab Findings: Abnormal Labs 03/21/20 03/21/20 18:37 18:37 RBC 3.59 L Hgb 9.1 L Hct 30.2 L MCH 25.3 L MCHC 30.1 L MPV 12.6 H Carbon Dioxide 18.4 L Anion Gap 13.6 H Creatinine 1.13 H Glucose 117 H Alkaline Phosphatase 143 H Total Protein 6.1 L Albumin 2.7 L
[2020-03-22] MEDS: Bupivacaine 0.25% Pres-Free 30 ML VIAL (10:55)
[2020-03-22] MEDS: fentaNYL 100 MCG/2 ML VIAL EP (10:55)
[2020-03-22] MEDS: Lactated Ringers 1,000 ML 125 ML IV (10:59)
[2020-03-22] MEDS: FentaNYL/ROPIvacaine 2 mcg/ml and 0.1% 200 ML CADD Cassette EP ×2 (11:02→11:26)
--- NOTE | 2020-03-22 12:54 | W.PM.OBNL1 ---
Date of service: 03/22/20 Time of Service: 12:55 Informed Consent Informed Consent: Induction of Labor Pelvic Exam Dilation: 4 Effacement (%): 75 station: -1 Cervix Position: mid Consistency: soft Vaginal Exam Presentation: Cephalic Comments: AROM with clear fluid. Digital exam performed during and after AROM. Fedal head well applied to internal os after AROM. Contractions Contraction Frequency(min): 2 Contraction Duration(sec): 50 Intensity: Moderate Fetus A Monitor: External (US) Heart Rate Baseline: 140 Variability: Moderate (6-25 BPM) Categories: Category I FHR Rhythm: Regular Characteristics: Normal Accelerations: 15 X 15 Decelerations: None Amniotic Membrane Status: Ruptured Rupture Method: Artifical Amniotic Fluid: Clear Date of Membrane Rupture: 03/22/20 Time of Membrane Rupture: 12:45 Objective Abnormal lab results 03/21/20 03/21/20 Range/Units 18:37 18:37 RBC 3.59 L (3.93-5.22) 10^6/uL Hgb 9.1 L (11.2-15.7) g/dL Hct 30.2 L (36.0-46.0) % MCH 25.3 L (27.0-33.0) pg MCHC 30.1 L (32.0-36.0) % MPV 12.6 H (8.0-11.0) fL Carbon Dioxide 18.4 L (21.0-32.0) mmol/L Anion Gap 13.6 H (3-11) mmol/L Creatinine 1.13 H (0.55-1.02) mg/dL Glucose 117 H (74-106) mg/dL Alkaline Phosphatase 143 H (46-116) U/L Total Protein 6.1 L (6.4-8.2) g/dL Albumin 2.7 L (3.4-5.0) g/dL Temp Pulse Resp BP Pulse Ox 98.1 F 86 20 137/69 99 03/22/20 09:45 03/22/20 12:54 03/22/20 09:45 03/22/20 12:54 03/22/20 12:54 Laboratory Results WBC 10.73 10^3/uL (4.4-10.8) 03/21/20 18:37 RBC 3.59 10^6/uL (3.93-5.22) L 03/21/20 18:37 Hgb 9.1 g/dL (11.2-15.7) L 03/21/20 18:37 Hct 30.2 % (36.0-46.0) L 03/21/20 18:37 MCV 84.1 fL (80-95) 03/21/20 18:37 MCH 25.3 pg (27.0-33.0) L 03/21/20 18:37 MCHC 30.1 % (32.0-36.0) L 03/21/20 18:37 RDW 13.7 % (11.7-14.6) 03/21/20 18:37 Plt Count 273 10^3/uL (130-400) 03/21/20 18:37 MPV 12.6 fL (8.0-11.0) H 03/21/20 18:37 Sodium 138 mmol/L (136-145) 03/21/20 18:37 Potassium 4.3 mmol/L (3.5-5.1) 03/21/20 18:37 Chloride 106 mmol/L (98-107) 03/21/20 18:37 Carbon Dioxide 18.4 mmol/L (21.0-32.0) L 03/21/20 18:37 Anion Gap 13.6 mmol/L (3-11) H 03/21/20 18:37 BUN 10 mg/dL (7-18) 03/21/20 18:37 Creatinine 1.13 mg/dL (0.55-1.02) H 03/21/20 18:37 Estimated GFR/1.73 m2 53.89 (mL/min/1.73m2) 03/21/20 18:37 Glucose 117 mg/dL (74-106) H 03/21/20 18:37 Calcium 8.8 mg/dL (8.5-10.1) 03/21/20 18:37 Total Bilirubin 0.3 mg/dL (0.2-1.0) 03/21/20 18:37 AST 29 U/L (15-37) 03/21/20 18:37 ALT 20 U/L (14-59) 03/21/20 18:37 Alkaline Phosphatase 143 U/L (46-116) H 03/21/20 18:37 Total Protein 6.1 g/dL (6.4-8.2) L 03/21/20 18:37 Albumin 2.7 g/dL (3.4-5.0) L 03/21/20 18:37 Ur Random Creatinine 222.58 mg/dL 03/21/20 20:44 U Random Total Protein 123.5 mg/dL 03/21/20 20:44 U [place] Prot/Creat Ratio 0.55 03/21/20 20:44 Patient ABO/Rh A Positive 03/21/20 18:37 Antibody Screen Negative 03/21/20 18:37 Subjective Patient Reports: No new Complaints Interval history since last seen: Patient comfortable after epidural placed Interventions Pain Management Interventions: Epidural ./ Induction Indication: Chronic Hypertension , Type of Induction: Pitocin , Results Hemoglobin/Hematocrit: Hgb 9.1 g/dL (11.2-15.7) L 03/21/20 18:37 Hct 30.2 % (36.0-46.0) L 03/21/20 18:37 Abnormal Lab Findings: Abnormal Labs 03/21/20 03/21/20 18:37 18:37 RBC 3.59 L Hgb 9.1 L Hct 30.2 L MCH 25.3 L MCHC 30.1 L MPV 12.6 H Carbon Dioxide 18.4 L Anion Gap 13.6 H Creatinine 1.13 H Glucose 117 H Alkaline Phosphatase 143 H Total Protein 6.1 L Albumin 2.7 L
--- NOTE | 2020-03-22 15:32 | W.OBDELIVERY ---
Date of service: 03/22/20 Time of Service: 15:32 OB Labor/ Delivery Information Baby A Delivery Delivery Method: Spontaneaous Presentation: Cephalic Vertex Position: Right Occipital Posterior Cord Description-Baby A: 3 Vessels and Nuchal Cord Amniotic Fluid: Clear Estimated Blood Loss: 50 Delivery Outcome: Liveborn Complications: none Note: Patient is a 39-year-old female with labor induction at term due to gestational hypertension, and gestational diabetes. She had a favorable cervix. She presented to the center last evening and received Pitocin augmentation of her labor. She got into an active labor pattern and received epidural for pain control. She had artificial rupture of membranes for copious clear fluid and rapidly progressed from approximately 6 cm to complete and pushing. With good maternal effort she pushed the vertex over an intact perineum. There was no evidence of nuchal cord. Shoulders followed with ease. Three-vessel cord was noted. Baby was delivered to the awaiting mom and had skin to skin post delivery. After approximately 2 minutes the cord was clamped and cut. Cord blood sample was obtained. Placenta delivered spontaneously after 5 minutes. On inspection there is no evidence of cervical laceration no evidence of vaginal laceration and there was a midline second-degree laceration of the perineum which was repaired in the usual fashion with 3-0 Vicryl suture and found to be hemostatic. Apgars were assigned by nursing and weight will be determined at sometime in the near future. Both mom and baby were stable post delivery. Providers Doctor: Jennifer Jarrell Nurse: Sarah Osborn Nurse: Dennis Kingston Labor/Delivery Information Number of Babies in Womb: 1 Steroids Given: None Reason Steroids Not Administered: N/A Group Beta Strep: Negative Antibiotics Administered: Yes Number of Doses of Antibiotics: 3 (For prophylaxis due to STRATEGIC DEBRIEFING OFFICER shunt) Rubella Status: Immune Blood Type: A+ Varicella Immunity: Immune Maternal Complications: None and Other Shoulder Dystocia: No Stages of Labor Onset of Labor Date: 03/22/20 Onset of Labor Time: 13:45 Complete Dilatation Date: 03/22/20 Complete Dilatation Time: 14:00 Labor - Stage 1 Duration: 0 minutes ROM Baby A: 03/22/20 ROM Baby A: 12:44 ROM Total Time- Baby A: [id number] Delivery Date-Baby A: 03/22/20 Infant Delivery Time-Baby A: 14:15 Labor Stage 2 Duration: 15 minutes Placenta Delivery Date-Baby A: 03/22/20 Placenta Delivery Time-Baby A: 14:15 Labor-Stage 3 Duration: 0 minutes Total Length of Labor-Baby A: 30 minutes Placenta Cultured: No Placenta Status: Delivered Baby A Gender: Female Gestational Status: Term (39-41.6 wks) Gestational Age in Weeks/Days: 39 Weeks and 1 Days Score-1 Minute Interval(Baby A) Heart Rate-1 minute: 100 BPM or Greater Respiratory Effort- 1 minute: Spontaneous/Strong Cry Muscle Tone-1 minute: Active Movement Reflex Response-1 minute: Prompt Response Color-1 minute: Bluish Hands or Feet Total Score-1 minute: 9 Score-5 Minute Interval(Baby A) Heart Rate- 5 minute: 100 BPM or Greater Respiratory Effort-5 minute: Spontaneous/Strong Cry Muscle Tone-5 minute: Active Movement Reflex Response-5 minute: Prompt Response Color-5 minute: Bluish Hands or Feet Total Score- 5 minute: 9
[2020-03-22] MEDS: Oxytocin/Normal Saline 30 UNIT/500 ML BAG 95 UNITS IV (17:55)
[2020-03-22] MEDS: Hamamelis Leaf/Glycerin 100 EACH BOX PR (17:55)
[2020-03-22] MEDS: Ibuprofen 600 MG TAB PO (18:14)
[2020-03-22 22:30] LABS: COVID-19 RT-PCR UVMMC Result Negative (Negative)
[2020-03-23] MEDS: Ibuprofen 600 MG TAB PO ×2 (00:20→08:10)
[2020-03-23] MEDS: Levothyroxine 100 MCG TAB PO (06:06)
[2020-03-23 08:00] VITALS: BP 133/85; PULSE 96; RESP 16; TEMP 36.6
--- NOTE | 2020-03-23 08:02 | W.PM.OBPNV1 ---
Date of service: 03/23/20 Time of Service: 08:02 Assessment and Plan Assessment and plan (1) Gestational diabetes: Status: Acute Qualifiers: Gestational diabetes mellitus control: diet-controlled Trimester: third trimester Qualified Code(s): O24.410 - Gestational diabetes mellitus in , diet controlled (2) Gestational hypertension affecting second : Status: Acute Assessment and plan: Blood pressure stable. (3) Spontaneous vaginal delivery: Status: Acute Assessment and plan: Plan 1 dose of oral furosemide to treat symptomatic lower extremity edema. Patient requests to stay 1 more evening. Plan discharge in the morning. Subjective Subjective Interval history: Patient is 39-year-old G2, P2 female who went underwent a spontaneous vaginal delivery at approximately 2:00 on 03/22/2020. She had second-degree perineal laceration that was repaired at the time of delivery. She has been breast-feeding successfully during the night. Her only issue is lower extremity edema. Prior to her delivery she was experiencing significant non-pitting 3+ lower extremity edema. Patient comments: Tolerating diet Patient's Mood: She states her mood is good [place] baby status: Doing well, Nursing well, Rooming in and Strong Bonding Observed [place] feeding status: Exclusively breast feeding Exam Physical Exam Vital signs: Temp Pulse Resp BP Pulse Ox 98.4 F 91 H 18 134/87 98 03/22/20 19:15 03/22/20 19:15 03/22/20 19:15 03/22/20 19:15 03/22/20 18:00 Vital Signs Reviewed: Yes Narrative: Thyroid replacement medicine restarted last evening. post prandial cbg continued after delivery Constitutional Constitutional: no acute distress (Patient reports painful lower extremity edema preventing her from walking) HEENT Exam HEENT Exam: Normal Respiratory Exam Respiratory Exam: Normal Cardiovascular Exam Cardiovascular Exam: Normal Abdominal Exam Comments: Gravid Fundal Exam Fundus: Below Umbilicus and Firm Extremities Exam Extremity Exam: Edema, Normal Capillary Refill and Warm to Touch; negative Redness Back/Spine/Pelvis Exam Back Exam: Normal Skin Exam Skin Exam: Normal Neurological Exam Neurological Exam: Normal Psychiatric Exam Psychiatric Exam: Normal Results Hemoglobin/Hematocrit: Hgb 9.1 g/dL (11.2-15.7) L 03/21/20 18:37 Hct 30.2 % (36.0-46.0) L 12/16/20 18:37 Abnormal Lab Findings: Abnormal Labs 03/21/20 03/21/20 18:37 18:37 RBC 3.59 L Hgb 9.1 L Hct 30.2 L MCH 25.3 L MCHC 30.1 L MPV 12.6 H Carbon Dioxide 18.4 L Anion Gap 13.6 H Creatinine 1.13 H Glucose 117 H Alkaline Phosphatase 143 H Total Protein 6.1 L Albumin 2.7 L
[2020-03-23] MEDS: Acetaminophen 325 MG TAB 650 MG PO (08:09)
[2020-03-23] MEDS: Furosemide 20 MG TAB PO (08:28)
[2020-03-23 18:32] VITALS: BP 133/87; PULSE 61; RESP 20; TEMP 36.7
[2020-03-23 19:53] VITALS: BP 118/81; PULSE 96; RESP 18; TEMP 36.7
--- NOTE | 2020-03-24 08:33 | DSE_ITS ---
Date of service: 03/24/20 Time of Service: 08:39 DS: Diagnosis Discharge Diagnosis (1) Gestational diabetes: Status: Acute (2) Gestational hypertension affecting second : Status: Acute (3) Spontaneous vaginal delivery: Status: Acute Discharge Plan Disposition Patient Disposition: HOME Condition: Critical Discharge Details Reason For Visit: IOL FOR GDM Admit Date/Time: 03/21/20 18:02 Admit Provider: Jennifer Jarrell Attending Provider: Jennifer Jarrell Primary Care Provider: Sneha Wood Hospital Course Hospital Course: Patient was admitted on 03/21/2000 4:20 induction of labor secondary to diet- controlled gestational diabetes and hypertension. She received an oxytocin infusion overnight had an uncomplicated spontaneous vaginal delivery of a viable female infant in the afternoon on 03/22/2020. Patient was discharged home on day 2 successfully breast-feeding. Her CBGs were stopped after delivery. She required an oral dose of furosemide to leave the pain from her bilateral lower extremity edema. She will have a telemedicine visit approximately 2 weeks to assess mood and breast-feeding. She will also require a 75 g 2-hour Glucola test, repeat TSH in approximately 6 weeks. Home Meds and New Rx's Prescriptions: No Action aspirin 81 mg tablet,chewable 81 mg PO DAILY RF: 0 (DME) OneTouch Verio test strips Strip See Rx Instructions .ROUTE .MEDSUPPLY Qty: 50 RF: 5 (DME) blood-glucose meter [OneTouch Verio Flex Start] Kit See Rx Instructions .ROUTE .MEDSUPPLY Qty: 1 RF: 0 (DME) lancets [OneTouch Delica Lancets] 33 gauge misc See Rx Instructions .ROUTE .MEDSUPPLY Qty: 100 RF: 5 prenat.vits,jethro,fum-nfgj-uxagc Tablet 1 tab PO DAILY Qty: 90 RF: 4 levothyroxine 100 mcg capsule 100 mcg PO DAILY RF: 0 Discharge Instructions Additional Instructions: Call the office at [phone] to arrange a telemedicine visit in approximately 2 weeks from delivery. Stand Alone Forms: BC Instructions, BC Post Vaginal Deliver Activity:: Activity as Tolerated Equipment/Supplies:: No Equipment Needed Diet:: Carb Counting Discharge Orders Discharge Orders: Discharge Order (Routine); Ordered 03/24/20 Ordered By: rEin Keene OB:DS Summary Summary Vaginal Delivery Method: Spontaneaous Episiotomy Description: Midline Laceration Description: Perineal Laceration Extension: Second Degree Contraception Discussed Contraception Discussed: Yes Contraceptive Plan: Vasectomy, Gender-Baby A: Female Status at Discharge Functional status at discharge: independent ambulation Overall status at discharge: patient is back to baseline Mental Status: mental status grossly normal Speech and Movement: speech and movement normal Mood: congruent mood Affect: normal affect Exam Physical Exam Vital signs: Temp Pulse Resp BP Pulse Ox 98.1 F 96 H 18 118/81 98 03/23/20 19:53 03/23/20 19:53 03/23/20 19:53 03/23/20 19:53 03/22/20 18:00 Vital Signs Reviewed: Yes Notable Details: Stopped testing CBG's after delivery Narrative: day 2, viable female named Esther Smith over second-degree perineal laceration that was repaired at the time of delivery. Post course has been uncomplicated. She has successfully breast-fed her infant and has been taking NSAIDs for discomfort. Patient received a dose of Lasix yesterday morning for relief of painful bilateral lower extremity edema. She wishes to be discharged to home today. Constitutional Constitutional: no acute distress HEENT Exam HEENT Exam: Normal Neck Exam Neck Exam: Normal Respiratory Exam Respiratory Exam: Normal Cardiovascular Exam Cardiovascular Exam: Normal Abdominal Exam Abdomen: Tender Fundal Exam Fundus: Below Umbilicus Rectal Exam Rectal Exam: Not Done Exam Perineum: Normal and Repair Intact External: Present normal urethra appearance Extremities Exam Extremity Exam: Edema (3+ nonpitting lower extremity edema bilaterally) Skin Exam Skin Exam: Normal Neurological Exam Neurological Exam: Normal Psychiatric Exam Psychiatric Exam: Normal [facility] Medical History (Updated 03/23/20 @ 08:08 by Erin Keene MD) Elevated glucose tolerance test Encounter for supervision of other normal , first trimester Family history of diabetes mellitus Family history of thyroid disease Gestational diabetes Good hypertension control Hx gestational diabetes Hx of gestational diabetes in prior , currently Required Metformin and NPH insulin during 1st . Nl 2hr PP GTT. Hydrocephalus ventricular shunt placed as 5yo and revised @ 13yo. Hypothyroid Noted during . PP Levoxyl adjusted from 75mcg to 50mcg. Lower extremity edema Patent ductus arteriosus Phyllodes tumor breast benign Surgical History (Updated 11/23/19 @ 11:30 by Radha Montaño CNM) excision benign Phyllodes tumor L breast 2006 Patent Ductus Arteriosus closure @ 7 days old Shunt procedures x several second to hydrocephalus Family History (Updated 10/06/19 @ 09:29 by Radha Montaño CNM) Mother Diabetes Thyroid disease Father Alcohol abuse Paternal Grandfather Alcohol abuse Maternal Aunt Thyroid disease Social History (Updated 03/24/20 @ 08:39 by Erin Keene MD) Smoking/Tobacco Use Status: Never Smoking risk assessment performed?: Yes Alcohol Intake: former Drug use: Never Substance use type: does not use Adopted: No Household members: significant other and other Details: Partner Uriel and their daughter Esther Galeano Number of Children: 2 Communication Needs: None current occupation: stay at home parent Female Reproductive History Menstrual control method: permanent sterilization ( had vasectomy in 1999. Did not return for recheck. Patient positive UPT 09/1999) History History 2 Para 1 Hx # Term Pregnancies 1 Multiple births Hx # Pregnancies Ectopic pregnancies AB induced Hx Number of Living Children AB spontaneous Past Pregnancies Del. Date GA/Weeks # Outcome Route Wgt Sex Labor Lgth Anesthes ia Location Prov [facility] 12/25/15 37 No Successful vaginal 6 lb 13 oz Female [address] [place] Delivery Date: 12/25/15 gestational diabetes - insulin controlled Radha Montaño DS: Data Vitals/I&O Vitals and I&O: Vital Signs Temperature 98.1 F 03/23/20 19:53 Temperature Source Oral 03/22/20 18:00 Pulse 96 H 03/23/20 19:53 Pulse Rhythm Regular 03/23/20 19:53 Respiratory Rate 18 03/23/20 19:53 Blood Pressure 118/81 03/23/20 19:53 Blood Pressure Mean 93 03/23/20 19:53 Pulse Oximetry 98 03/22/20 18:00 Oxygen Delivery Method Room Air 03/22/20 18:00 Oxygen Flow Rate 0 03/22/20 18:00 Pain Level 6 03/23/20 08:10 Comment 03/23/20 18:32 Intake & Output 03/23/20 03/23/20 03/24/20 11:59 23:59 11:59 Intake Total 500 / 500 Output Total 1100 / 1100 Balance -600 / -600 Intake: Oral 500 / 500 Output: Urine 1100 / 1100 Other: Urine Color Pale
[2020-03-24] MEDS: Ibuprofen 600 MG TAB PO (08:42)
[2020-03-24] MEDS: Levothyroxine 100 MCG TAB PO (08:42)
[2020-03-24 08:50] VITALS: BP 128/81; PULSE 86; RESP 18; TEMP 36.5; O2SAT 96
== END 2020-03-24 14:00 | disposition home or self-care (01) | DRG 807 ==
PROVIDERS: Admitting Provider Obstetrics & Gynecology; PCP Nurse Practitioner Family; Visit Provider Obstetrics & Gynecology
DX: O24.410 Gestational diabetes mellitus in pregnancy, diet controlled (principal); Z37.0 Single live birth; O13.4 Gestational [pregnancy-induced] hypertension without significant proteinuria, complicating childbirth; O70.1 Second degree perineal laceration during delivery; Z3A.39 39 weeks gestation of pregnancy; O99.284 Endocrine, nutritional and metabolic diseases complicating childbirth; E03.9 Hypothyroidism, unspecified
CPT/HCPCS: 36415; 80053; 85027; 86850; 86900; 86901; U0003; 82565; 84156; J0690; J3010

== ENCOUNTER 2020-07-27 13:23 | Outpatient (REF) | payer MEDICAID, SELFPAY ==
[2020-07-27 15:20] LABS: Anion Gap 13.8 mmol/L (3-11); BUN 23 mg/dL (7-18); CO2 21.2 mmol/L (21.0-32.0); Calcium 9.2 mg/dL (8.5-10.1); Chloride 109 mmol/L (98-107); Glucose 127 mg/dL (74-106); Potassium 4.6 mmol/L (3.5-5.1); Sodium 144 mmol/L (136-145); TSH (W/Ref FT4) 0.09 uIU/mL (0.36-3.74)
[2020-07-27 15:55] LABS: FREE T4 1.08 ng/dL (0.76-1.46)
== END 2020-07-27 13:24 | disposition home or self-care (01) ==
LOC: NCHCN 13:23
PROVIDERS: PCP Nurse Practitioner Family; Visit Provider Nurse Practitioner Family
DX: E03.9 Hypothyroidism, unspecified (principal); Z87.59 Personal history of other complications of pregnancy, childbirth and the puerperium
CPT/HCPCS: 80048; 85027; 84439; 84443

== ENCOUNTER 2020-07-30 11:23 | Outpatient (REF) | payer MEDICAID, SELFPAY ==
[2020-07-30 16:13] LABS: HCT 38.4 % (36.0-46.0); HGB 12.3 g/dL (11.2-15.7); MCH 27.3 pg (27.0-33.0); MCV 85.1 fL (80-95); MPV 11.8 fL (8.0-11.0); Platelet Count 348 10^3/uL (130-400); RBC 4.51 10^6/uL (3.93-5.22); RDW 14.8 % (11.7-14.6); RDW-SD 45.2 fL
[2020-07-30 16:26] LABS: Prothrombin Time 9.9 sec (9.3-11.0)
[2020-07-30 16:37] LABS: Anion Gap 10.9 mmol/L (3-11); BUN 16 mg/dL (7-18); CO2 24.1 mmol/L (21.0-32.0); CREATININE 0.9 mg/dL (0.55-1.02); Calcium 9.7 mg/dL (8.5-10.1); Chloride 107 mmol/L (98-107); Glucose 121 mg/dL (74-106); Potassium 4.4 mmol/L (3.5-5.1); Sodium 142 mmol/L (136-145); TSH (W/Ref FT4) 0.11 uIU/mL (0.36-3.74)
[2020-07-30 17:04] LABS: FREE T4 1.15 ng/dL (0.76-1.46)
== END 2020-07-30 11:24 | disposition home or self-care (01) ==
LOC: NCHCN 11:23
PROVIDERS: PCP Nurse Practitioner Family; Visit Provider Nurse Practitioner Family
DX: E03.9 Hypothyroidism, unspecified (principal); R23.8 Other skin changes; O13.5 Gestational [pregnancy-induced] hypertension without significant proteinuria, complicating the puerperium; Z00.00 Encounter for general adult medical examination without abnormal findings
CPT/HCPCS: 80048; 85027; 84439; 84443; 85610

== ENCOUNTER 2021-07-30 13:54 | Outpatient (REF) | payer MEDICAID, SELFPAY ==
[2021-07-30 19:00] LABS: TSH (W/Ref FT4) 0.41 uIU/mL (0.36-3.74)
[2021-07-30 19:04] LABS: Hemoglobin A1C 5.7 % (<5.7)
== END 2021-07-30 13:55 | disposition home or self-care (01) ==
LOC: NCHCN 13:54
PROVIDERS: PCP Nurse Practitioner Family; Visit Provider Nurse Practitioner Family
DX: E03.9 Hypothyroidism, unspecified (principal); Z86.32 Personal history of gestational diabetes
CPT/HCPCS: 83036; 84443

== ENCOUNTER 2022-08-06 12:32 | Outpatient (REF) | payer MEDICAID, SELFPAY ==
[2022-08-06 16:47] LABS: Calculated LDL 91 mg/dL (<100); Cholesterol 172 mg/dL (<200); HDL Cholesterol 67 mg/dL (40-60); TSH 2.78 uIU/mL (0.36-3.74); Triglyceride 74 mg/dL (<150)
== END 2022-08-06 12:33 | disposition home or self-care (01) ==
LOC: NCHCN 12:32
PROVIDERS: PCP Nurse Practitioner Family; Visit Provider Nurse Practitioner Family
DX: E03.9 Hypothyroidism, unspecified (principal); Z13.220 Encounter for screening for lipoid disorders
CPT/HCPCS: 80061; 84443

== ENCOUNTER 2022-08-25 01:04 | Outpatient (CLI) | payer MEDICAID, SELFPAY ==
--- NOTE | 2022-08-25 09:09 | DI.MAMMO_ITS ---
Exam(s) MAMMO SCREENING EXAM: MAMMO SCREENING CLINICAL HISTORY: SCREENING, Z12.39 TECHNIQUE: Bilateral full field digital CC and MLO mammographic images were obtained with 3D tomosyn thesis and utilizing computer aided detection (CAD). COMPARISON: Available for comparison. FINDINGS: Masses/Architectural Distortion: None seen. Microcalcifications: No suspicious pleomorphic-type are seen. Skin Thickening/Nipple Retraction: None. IMPRESSION: 1. No significant interval change with no specific features of malignancy noted. 2. Unless there is more urgent need, screening mammography is recommended, as per [employer] guidelines. BI-RADS Category 1 - Negative Breast Density - Category B - Scattered areas of fibroglandular density Breast density category C or D implies that the patient has dense breast tissue. Dense breast tissue is very common and is not abnormal but dense breast tissue can make it harder to find cancer on a ma mmogram. Also, dense breast tissue may increase their breast cancer risk. This information about the result of the mammogram report was provided to the patient to raise their awareness. Use this report when you speak with the patient about their risks for breast cancer, which includes their family hist ory. At that time, you may recommend for more screening tests (Ultrasound or MRI) as they might be us eful based on their risk. A negative radiographic report should not delay biopsy if a dominant or clinically suspicious mass is present. Up to ten percent of cancers are not identified on mammography. A negative report may reinforce clinical impression. Adenosis and dense breasts may obscure an underlying neoplasm. False positive reports average 6 to 10%. Patient will receive a letter notifying them of these results.
== END 2022-08-25 01:24 ==
LOC: DI 01:05
PROVIDERS: PCP Nurse Practitioner Family; Visit Provider Nurse Practitioner Family
DX: Z12.31 Encounter for screening mammogram for malignant neoplasm of breast (principal)
CPT/HCPCS: 77063; 77067

== ENCOUNTER 2023-08-11 12:49 | Outpatient (REF) | payer MEDICAID, SELFPAY ==
[2023-08-11 15:59] LABS: ALT 38 U/L (14-59); AST 25 U/L (15-37); Alkaline Phosphatase 81 U/L (46-116); Anion Gap 12.7 mmol/L (3-11); BUN 10 mg/dL (7-18); Bilirubin, Total 0.5 mg/dL (0.2-1.0); CO2 23.3 mmol/L (21.0-32.0); CREATININE 0.8 mg/dL (0.55-1.02); Calcium 8.8 mg/dL (8.5-10.1); Calculated LDL 100 mg/dL (<100); Chloride 107 mmol/L (98-107); Cholesterol 174 mg/dL (<200); Estimated GFR 94.87 (mL/min/1.73m2); FREE T4 1.04 ng/dL (0.76-1.46); Glucose 85 mg/dL (74-106); HDL Cholesterol 63 mg/dL (40-60); Potassium 4.4 mmol/L (3.5-5.1); Sodium 143 mmol/L (136-145); TSH 2.14 uIU/Ml (0.36-3.74); Total Protein 7.2 g/dL (6.4-8.2); Triglyceride 57 mg/dL (<150)
[2023-08-11 16:21] LABS: Hemoglobin A1C 5.6 % (<5.7)
[2023-08-12 10:08] LABS: Hepatitis C Ab w Rflx HCV PCR Negative (Negative)
[2023-08-12 10:17] LABS: HIV-1/2 Ag & Ab Screen Negative (Negative)
== END 2023-08-11 12:50 | disposition home or self-care (01) ==
LOC: NCHCN 12:49
PROVIDERS: PCP Nurse Practitioner Family; Visit Provider Nurse Practitioner Family
DX: Z13.6 Encounter for screening for cardiovascular disorders (principal); E03.9 Hypothyroidism, unspecified; Z11.4 Encounter for screening for human immunodeficiency virus [HIV]
CPT/HCPCS: 80053; 80061; 86803; 87389; 83036; 84439; 84443

== ENCOUNTER 2024-08-16 12:16 | Outpatient (REF) | payer MEDICAID, SELFPAY ==
--- NOTE | 2024-08-16 11:00 | PAPFT_PTH ---
PATIENT: Jadyn Law LOC: [facility] U#:[id number] AGE/SX: 43/F ROOM: RE08/16/[address]: Debbi Salas : 1980 BED: DIS: 08/16/2024 SPEC #: [id number] RECD: 08/16/24 18:28 STATUS: JULIANN REQ #: [id number] KERON: 08/16/24 11:[address]: Debbi Salas DEPT: [facility] Cytology RECD BY: Alesha Teixeira ENTERED: 08/16/24 18:28 SP TYPE: PAPFT RODDY DR: Unknown,Unknown Tissues: 1 - CX/ENDOCX FOR PAP SMEARS Procedures: PAP THIN PREP/[facility] Screening HPV DNA PROBE Comments: [id number] (HPV 16 & 18/45)
[2024-08-16 18:04] LABS: TSH (W/Ref FT4) 2.23 uIU/mL (0.36-3.74)
[2024-08-16 18:10] LABS: Hemoglobin A1C 5.5 % (<5.7)
== END 2024-08-16 12:17 | disposition home or self-care (01) ==
LOC: NCHCN 12:16
PROVIDERS: Visit Provider Nurse Practitioner Family
DX: E03.9 Hypothyroidism, unspecified (principal); Z83.3 Family history of diabetes mellitus; Z11.51 Encounter for screening for human papillomavirus (HPV); Z01.419 Encounter for gynecological examination (general) (routine) without abnormal findings
CPT/HCPCS: 88142; 83036; 84443; 87624

== ENCOUNTER 2024-10-10 02:46 | Outpatient (CLI) | payer MEDICAID, SELFPAY ==
--- NOTE | 2024-10-10 | DI.MAMMO_ITS ---
Exam(s) MAMMO SCREENING EXAM: MAMMO SCREENING CLINICAL HISTORY: Screening, Z12.31. TECHNIQUE: Bilateral full field digital CC and MLO mammographic images were obtained with 3D tomosynthesis and utilizing computer aided detection (CAD). COMPARISON: Prior mammograms were reviewed. FINDINGS: There has been no significant change in the appearance and distribution of the fibroglandular tissue. There are no new spiculated masses nor malignant appearing microcalcification groups. There is no significant architectural distortion nor skin thickening-retraction. IMPRESSION: No radiographic evidence of malignancy. BI-RADS Category 1 - Negative Breast Density - Category B - There are scattered areas of fibroglandular density. Breast density Category C or D implies that the patient has dense breast tissue. Dense breast tissue can make it harder to find cancer on a mammogram. Dense breast tissue is also associated with an increased risk of breast cancer. This information about the result of the mammogram report was provided to the patient to raise their awareness. Use this report when you speak with the patient about their risks for breast cancer, which includes their family history. At that time, you may recommend additional screening tests (Ultrasound or MRI) as these tests may add significant information. A negative radiographic report should not delay biopsy if a dominant or clinically suspicious mass is present. Up to ten percent of cancers are not identified on mammography. A negative report may reinforce clinical impression. Adenosis and dense breasts may obscure an underlying neoplasm. False positive reports average 6 to 10%. Patient will receive a letter notifying them of these results.
== END 2024-10-10 03:06 ==
PROVIDERS: PCP Nurse Practitioner Family; Visit Provider Nurse Practitioner Family
DX: Z12.31 Encounter for screening mammogram for malignant neoplasm of breast (principal); R92.323 Mammographic fibroglandular density, bilateral breasts
CPT/HCPCS: 77063; 77067